=== PATIENT | female | born 1975 ===

== ENCOUNTER 2017-11-22 13:02 | Emergency (ER) | payer MEDICARE, MEDICAID ==
[2017-11-22] MEDS ORDERED: MECL25TA27 PO (13:11)
[2017-11-22] MEDS ORDERED: ACET-3017 PO (13:22)
[2017-11-22] MEDS ORDERED: AMOX500T10 PO (13:22)
--- NOTE | 2017-11-22 13:23 | ER Report ---
History and Physical Time Seen By MD: 13:00 Hx. of Stated Complaint: Patient reporting dental pain since New Years. Patient seeking pain relief for two fron teeth until she can see dentist in [place] next week. HPI/ROS CHIEF COMPLAINT: Tooth pain HISTORY OF PRESENT ILLNESS: Patient is a 42-year-old female who presents the ED with complaint of tooth pain for the past 3 days. She states that she has had multiple dental issues in the past. She has a dentist appointment in her hometown of [place], [place] next week. Since that she is in [place], [place] visiting friends. She denies any fever. She states that her front tooth has been fractured for a while. She states that both of her front teeth have been painful now. REVIEW OF SYSTEMS: Respiratory: No cough, no dyspnea. Cardiovascular: No chest pain, no palpitations. Gastrointestinal: No vomiting, no abdominal pain. Musculoskeletal: No back pain. Allergies: Coded Allergies: acetaminophen (Verified Allergy, Unknown, 11/22/17) propoxyphene (Verified Allergy, Unknown, 11/22/17) Home Meds Active Scripts Amoxicillin 500 Mg Tab (AMOXICILLIN 500 MG TAB) 500 Mg Tablet, 1 TAB PO Q8H, # 30 TAB Prov:LARRY GONZALEZ PA-C 11/22/17 Acetaminophen With Codeine # 3 (TYLENOL WITH CODEINE #3 TABLET) 1 Each Tablet, 1 EACH PO Q6H, #8 TAB Prov:LARRY GONZALEZ PA-C 11/22/17 Reported Medications Meclizine Hcl (MECLIZINE HCL) 25 Mg Tab.chew, 25 MG PO BID, TAB.CHEW 11/22/17 Reviewed Nurses Notes: Yes Old Medical Records Reviewed: Yes Constitutional Physical Exam General Appearance: The patient is alert, has no immediate need for airway protection and no current signs of toxicity. Patient appears to be in no acute distress. Eyes: Pupils equal and round no injection. Mouth: Poor dentition throughout. There is a fracture of the right front tooth. Bilateral front teeth and bilateral lateral incisors appear to be discolored with cavities. No significant gum swelling appreciated. Pain with palpation of those teeth. Respiratory: Chest is non tender, lungs are clear to auscultation. Cardiac: regular rate and rhythm Skin: No rashes or lesions. Medical Decision Making ED Course/Re-evaluation ED Course Patient wanting pain relief for this until her dental appointment. Discussed that we will give her some medication as well as amoxicillin to cover for prophylaxis. She states that she is allergic to Darvocet and tramadol. Will give her Tylenol No. 3. Advised her to use ibuprofen 800 mg 3 times a day when necessary pain as well. Decision to Disposition Date: Nov 22, 2017 Decision to Disposition Time: 13:20 Depart Departure Latest Vital Signs Impression: Primary Impression: Tooth pain Condition: Improved Disposition: HOME OR SELF-CARE New Scripts Amoxicillin 500 Mg Tab (AMOXICILLIN 500 MG TAB) 500 Mg Tablet 1 TAB PO Q8H, #30 TAB Prov: LARRY GONZALEZ PA-C 11/22/17 Acetaminophen With Codeine # 3 (TYLENOL WITH CODEINE #3 TABLET) 1 Each Tablet 1 EACH PO Q6H, #8 TAB Prov: LARRY GONZALEZ PA-C 11/22/17 Patient Instructions: Toothache (ED) Additional Instructions: Stay well-hydrated. Take ibuprofen 800 mg 3 times a day as needed for pain. May use prescription medication for breakthrough pain. Follow up with your dentist as soon as possible. If having any worsening or concerning symptoms may return to the emergency department. LARRY GONZALEZ PA-C Nov 22, 2017 13:22
[2017-11-22 13:51] VITALS: BP 116/118
== END 2017-11-22 13:52 | disposition home or self-care (01) ==
LOC: ER 13:12
DX: K08.89 Other specified disorders of teeth and supporting structures (principal)
CPT/HCPCS: 99283